=== PATIENT | male | born 1945 | race Caucasian/White ===

== ENCOUNTER 2018-12-20 09:03 | Emergency (ER) | payer MEDICARE ==
[~2018-12-20] VITALS: Ht 175.3 cm; Wt 78.0 kg
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
--- OUTSIDE RECORDS SUMMARY | ~2018-12-20 | XMS | Encounter Summary ---
Demographics + + + | Address | [address] | | | [place] [address] | + + + | Home Phone | | + + + | Preferred Language | Unknown | + + + | Marital Status | | + + + | Taoist Affiliation | PRO | + + + | Race | White | + + + | Ethnic Group | Not or | + + + Author + + + | Author | [facility] | + + + | Organization | [facility] | + + + | Address | Unknown | + + + | Phone | Unavailable | + + + Support + + +---------+ + | Name | Relationship | Address | Phone | + + +---------+ + | Sury Box | ECON | Unknown | | + + +---------+ + Care Team Providers + +------+ + | Care Telephone Coin Box Collector Name | Role | Phone | + +------+ + | Azar See DO | PCP | | + +------+ + Encounter Details +--------+ + + + + | Date | Type | Department | Care Team | Description | +--------+ + + + + | 10/11/ | Hospital | Registration [facility] | | | | 2018 | Encounter | [id number] | | | | | | [place] | | | | | | [place] [address] | | | +--------+ + + + + Social History + +-------+ +--------+------+ | Tobacco Use | Types | Packs/Day | Years | Date | | | | | Used | | + +-------+ +--------+------+ | Never Assessed | | | | | + +-------+ +--------+------+ + + + | Sex Assigned at [...] as of this encounter Plan of Treatment +--------+---------+ + + + | Date | Type | Specialty | Care Team | Description | +--------+---------+ + + + | 12/27/ | Office | Ophthalmology | Chris Mattson MD | | | 2019 | Visit | | [address] | | | | | | [place], [place] | | | | | | [address] | | | | | | [phone] | | | | | | | | +--------+---------+ + + + documented as of this encounter Visit Diagnoses Not on filedocumented in this encounter"
--- OUTSIDE RECORDS SUMMARY | ~2018-12-20 | XMS | Clinical Summary ---
Demographics + + + | Address | [address] | | | [place] [address] | + + + | Home Phone | | + + + | Preferred Language | Unknown | + + + | Marital Status | | + + + | Adventist Affiliation | PRO | + + + | Race | White | + + + | Ethnic Group | Not or | + + + Author + + + | Author | [facility] | + + + | Organization | NON REVENUE LOCATIONS | + + + | Address | Unknown | + + + | Phone | Unavailable | + + + Support + + +---------+ + | Name | Relationship | Address | Phone | + + +---------+ + | Sury Box | ECON | Unknown | | + + +---------+ + Care Team Providers + +------+ + | Care Gallery Or Museum Guide Name | Role | Phone | + +------+ + | Azar See DO | PCP | | + +------+ + Source Comments ANAYELI is fully live on both [facility] Ambulatory and [facility] InPatient.[facility] Allergies No Known Allergies Medications + + + +---------+------+------+-------+ | Medication | Sig | Dispensed | Refills | Star | End | Statu | | | | | | t | Date | s | | | | | | Date | | | + + + +---------+------+------+-------+ | atorvastatin 20 mg | Take 20 mg by mouth | | 0 | 09/0 | | Activ | | oral tablet | once daily. | | | 7/20 | | e | | | | | | 18 | | | + + + +---------+------+------+-------+ | losartan 50 mg | Take 50 mg by mouth | | 0 | 02/1 | | Activ | | oral tablet | once daily. | | | 03/31 | | e | | | | | | 19 | | | + + + +---------+------+------+-------+ | sildenafil 20 mg | Take 20 mg by mouth | | 0 | 08/3 | | Activ | | oral tablet | three times daily. | | | 0/20 | | e | | | | | | 18 | | | + + + +---------+------+------+-------+ | MEDICATION HELP | as needed. CBD oil | | 0 | | | Activ | | | | | | | | e | + + + +---------+------+------+-------+ | levothyroxine 125 | Take 125 mcg by | | 0 | 03/2 | | Activ | | mcg oral tablet | mouth before | | | 08/29 | | e | | | breakfast. | | | 19 | | | + + + +---------+------+------+-------+ | aspirin EC 81 mg | Take 81 mg by mouth | | 0 | | | Activ | | oral tablet,delayed | once daily. | | | | | e | | release (DR/EC) | | | | | | | + + + +---------+------+------+-------+ | Coenzyme Q10 (CO | Take 200 mg by mouth | | 0 | | | Activ | | Q-10) 200 mg oral | once daily. | | | | | e | | capsule | | | | | | | + + + +---------+------+------+-------+ | fluconazole 150 mg | Take 150 mg by mouth | | 0 | 02/0 | | Activ | | oral tablet | as needed. | | | 7/20 | | e | | | | | | 19 | | | + + + +---------+------+------+-------+ | vitamin B complex | Take 2,500 mg by | | 0 | | | Activ | | (B COMPLEX 1 ORAL) | mouth once daily. | | | | | e | + + + +---------+------+------+-------+ | Fish Oil-[place]-3 | Take 2,000 mg by | | 0 | | | Activ | | Fatty Acids (FISH | mouth once daily. | | | | | e | | OIL) 340-1,000 mg | | | | | | | | oral capsule | | | | | | | + + + +---------+------+------+-------+ | MEDICATION HELP | TURMERIC CURCUMIN PO | | 0 | | | Activ | | | | | | | | e | + + + +---------+------+------+-------+ | | Take 1 capsule by | | 0 | | | Activ | | beta-carotene(A)-vit | mouth once daily. | | | | | e | | s C,E/mins (OCUVITE | | | | | | | | ORAL) | | | | | | | + + + +---------+------+------+-------+ Active Problems + + + | Problem | Noted Date | + + + | Retinal tears, multiple, without detachment, bilateral | 07/08/2018 | + + + + + | Last Assessment & Plan: POM #2 s/p laser retinopexy, both | | eyes for retinal tear, both eye- Retinal breaks well surrounded | | by retinopexy (laser) scars.- No evidence of new retinal breaks | | or detachments on 360 degree scleral depressed examination. - RD | | precautions discussed and patient instructed to RTC sooner/seek | | urgent care if patient experiences discussed signs/symptoms. | + + + + + | Posterior vitreous detachment, both eyes | 07/08/2018 | + + + + + | Last Assessment & Plan: Monitor | + + + + + | Pseudophakia, both eyes | 07/08/2018 | + + + + + | Last Assessment & Plan: Trace inferior PCO left eye, not | | bothering patient at this time | + + + + + | Epiretinal membrane (ERM) of both eyes | 07/08/2018 | + + + + + | Last Assessment & Plan: Monitor | + + Family History + + +------+ + | Medical History | Relation | Name | Comments | + + +------+ + | Cancer | Brother | | | + + +------+ + | Glasses | Brother | | | + + +------+ + | Prostate Cancer | Brother | | | + + +------+ + | Glasses | Daughter | | | + + +------+ + | Cancer | Father | | | + + +------+ + | Glasses | Father | | | + + +------+ + | Prostate Cancer | Father | | | + + +------+ + | Heart Disease | Maternal | | | | | Grandfath | | | | | er | | | + + +------+ + | Heart Disease | Maternal | | | | | Grandmoth | | | | | er | | | + + +------+ + | Cancer | Mother | | | + + +------+ + | Leukemia | Mother | | | + + +------+ + | Blindness | Neg Hx | | | + + +------+ + | Cataracts | Neg Hx | | | + + +------+ + | Diabetes | Neg Hx | | | + + +------+ + | Glaucoma | Neg Hx | | | + + +------+ + | Macular degeneration | Neg Hx | | | + + +------+ + | Retinal detachment | Neg Hx | | | + + +------+ + + +------+--------+ + | Relation | Name | Status | Comments | + +------+--------+ + | Brother | | | | + +------+--------+ + | Daughter | | | | + +------+--------+ + | Father | | | | + +------+--------+ + | Maternal Grandfather | | | | + +------+--------+ + | Maternal Grandmother | | | | + +------+--------+ + | Mother | | | | + +------+--------+ + Social History + +-------+ +--------+------+ | Tobacco Use | Types | Packs/Day | Years | Date | | | | | Used | | + +-------+ +--------+------+ | Former Smoker | | | | | + +-------+ +--------+------+ + +---+---+---+ | Smokeless Tobacco: | | | | | Never Used | | | | + +---+---+---+ + + + | Sex Assigned at [...] recent travel history available. | + + Last Filed Vital Signs Not on file Plan of Treatment +--------+---------+ + + + | Date | Type | Specialty | Care Team | Description | +--------+---------+ + + + | 12/27/ | Office | Ophthalmology | Chris Mattson MD | | | 2019 | Visit | | [address] | | | | | | [place], [place] | | | | | | [address] | | | | | | [phone] | | | | | | | | +--------+---------+ + + + + + + + + | Health Maintenance | Due Date | Last Done | Comments | + + + + + | Influenza (Flu) | | 01/16/2017 | | | vaccination (#1) | 9 | | | + + + + + | Pneumococcal | Completed | 04/23/2014, 04/08/2009 | | | vaccination | | | | + + + + + Procedures + +--------+ + + + | Procedure Name | Priori | Date/Time | Associated Diagnosis | Comments | | | ty | | | | + +--------+ + + + | LASER RETINOPEXY FOR | Routin | 10/22/2018 | Retinal detachment | Results for this | | RD -OS - LEFT EYE | e | 9:38 AM | of both eyes with | procedure are in the | | | | PDT | multiple retinal | results section. | | | | | tears | | + +--------+ + + + | LASER RETINOPEXY FOR | Routin | 10/22/2018 | Retinal detachment | Results for this | | RD -OD - RIGHT EYE | e | 9:37 AM | of both eyes with | procedure are in the | | | | PDT | multiple retinal | results section. | | | | | tears | | + +--------+ + + + from Last 3 Months Results LASER RETINOPEXY FOR RD -OS - LEFT EYE (10/22/2018 9:38 AM PDT) + + -+ | Narrative | Performed At | + + -+ | | | | Pre-ProcedureProcedures, alternatives and risks discussed with | | | patient. Questions answered., confirmed correct patient, procedure, | | | site and consent. AnesthesiaAnesthesia: topical Anesthetic | | | Medication: Proparacaine 0.5% ProcedureLaser source: 532 nm | | | green laser Delivery Modality: Superquad Spot size: 200 | | | micronsDuration: 200 millisecondsPower: 200 milliwatts Total spots: | | | 112 Estimated blood loss: none Post OpPost op: patient tolerated | | | procedure well, eye rinsed. Patient reported pain is 0 on a 0-10 | | | scale. | | |Procedure | | |Laser source: 532 nm green laser | | |Delivery Modality: Superquad | | | | | |Spot size: 200 microns | | |Duration: 200 milliseconds | | |Power: 200 milliwatts | | | | | | | | |Total spots: 112 | | |Estimated blood loss: none | | | | | | | | |Post Op | | |Post op: patient tolerated procedure well, eye rinsed. Patient reported | | |pain is 0 on a 0-10 scale. | | + + -+ LASER RETINOPEXY FOR RD -OD - RIGHT EYE (10/22/2018 9:37 AM PDT) + + + | Narrative | Performed At | + + + | Pre-Procedure | | | Procedures, alternatives and risks discussed with patient. Questions | | | answered., confirmed correct patient, procedure, site and consent. | | | | | | | | | Anesthesia | | | Anesthesia: topical | | | Anesthetic Medication: Proparacaine 0.5% | | | | | | | | | Procedure | | | Laser source: 532 nm green laser | | | Delivery Modality: Superquad | | | | | | Spot size: 200 microns | | | Duration: 200 milliseconds | | | Power: 200 milliwatts | | | | | | | | | Total spots: 120 | | | Estimated blood loss: none | | | | | | | | | Post Op | | | Post op: patient tolerated procedure well, eye rinsed. | | + + + from Last 3 Months Insurance + +--------+ +--------+ + +--------+ | Payer | Benefi | Subscriber | Effect | Phone | Address | Type | | | t Plan | ID | julita | | | | | | / | | Dates | | | | | | Group | | | | | | + +--------+ +--------+ + +--------+ | MEDICARE | MEDICA | xxxxxxxxxxx | | [phone] | [address] | [address] | | | RE A & | | [phone] | [address] | | | B | | esent | | [place], [place] | | | | | | | | [address] | | + +--------+ +--------+ + +--------+ | [employer] | AARP | xxxxxxxxxxx | 03/12/19 | [phone] | [address] | Indemn | | RETIRED PEOPLE | | | 18-Pre | 9 | [id number] | ity | | | | | sent | | [place] | | | | | | | | [address] | | + +--------+ +--------+ + +--------+ + +--------+ +--------+ + + | Guarantor Name | Accoun | Relation to | Date | Phone | Billing Address | | | t Type | Patient | of | | | | | | | | | | + +--------+ +--------+ + + | Lenin Box Jr. | Person | Self [birth year] | [address] | | | al/Fam | | 1945 | [phone] | [place] [address] | | | melly | | | 5 (Home) | | + +--------+ +--------+ + +"
--- OUTSIDE RECORDS SUMMARY | ~2018-12-20 | XMS | Encounter Summary ---
Demographics + + + | Address | [address] | | | [place] [address] | + + + | Home Phone | | + + + | Preferred Language | Unknown | + + + | Marital Status | | + + + | Zoroastrianism Affiliation | PRO | + + + | Race | White | + + + | Ethnic Group | Not or | + + + Author + + + | Author | [facility] | + + + | Organization | [facility] | + + + | Address | Unknown | + + + | Phone | Unavailable | + + + Support + + +---------+ + | Name | Relationship | Address | Phone | + + +---------+ + | Sury Box | ECON | Unknown | | + + +---------+ + Care Team Providers + +------+ + | Care International Project Manager Name | Role | Phone | + [...] | | | | | [place] | | | | | | [place] [address] | | | +--------+ + + + [...] | | 2019 | Visit | | [address] | | | [address] | | | | | | [place], [place] | | | | | | [address] | | | | | | [phone] | | | | | | | | +--------+---------+ + + + documented as of this encounter Visit Diagnoses Not on filedocumented in this encounter"
--- OUTSIDE RECORDS SUMMARY | ~2018-12-20 | XMS | Encounter Summary ---
Demographics + + + | Address | [address] | | | [place] [address] | + + + | Home Phone | | + + + | Preferred Language | Unknown | + + + | Marital Status | | + + + | Hinduism Affiliation | PRO | + + + | Race | White | + + + | Ethnic Group | Not or | + + + Author + + + | Organization | Unknown | + + + | Address | Unknown | + + + | Phone | Unavailable | + + + Support + + +---------+ + | Name | Relationship | Address | Phone | + + +---------+ + | Sury Box | ECON | Unknown | | + + +---------+ + Care Team Providers + +------+ + | Care Cdl Company Driver Name | Role | Phone | + +------+ + | Azar See DO | PCP | | + +------+ + Encounter Details +--------+--------+ + + + | Date | Type | Department | Care Team | Description | +--------+--------+ + + + | 08/30/ | Travel | | | | | 2019 | | | | | +--------+--------+ + + + Social History + +-------+ [...] | | 2019 | Visit | | [address] | | | | | [address] | | | | | | [place] | | | | | | [address] | | | | | | [phone] | | | | | | | | +--------+---------+ + + + documented as of this encounter Visit Diagnoses Not on filedocumented in this encounter"
--- OUTSIDE RECORDS SUMMARY | ~2018-12-20 | XMS | Encounter Summary ---
Demographics + + + | Address | [address] | | | [place] [address] | + + + | Home Phone | | + + + | Preferred Language | Unknown | + + + | Marital Status | | + + + | Sabianist Affiliation | Unknown | + + + | Race | Unknown | + + + | Ethnic Group | Unknown | + + + Author + + + | Author | [facility] | | | and [place] | + + + | Organization | [facility] | | | and [place] | + + + | Address | Unknown | + + + | Phone | Unavailable | + + + Support + + + + + | Name | Relationship | Address | Phone | + + + + + | CARLOS ALBERTOTIANLANENASIR ALLEN | ECON | Unknown | | + + + + + | Astrid Box | ECON | [address] | | | | | [place] | | | | | [address] | | + + + + + Care Team Providers + +------+ + | Care Rheumatology Nurse Name | Role | Phone | + +------+ + | Azar See DO | PCP | Unavailable | + +------+ + Reason for Visit + + + | Reason | Comments | + + + | Back Injury | | + + + Encounter Details +--------+ + + + + | Date | Type | Department | Care Team | Description | +--------+ + + + + | 11/04/ | Telephone | [facility] | Azar See | Back Injury | | 2019 | | [facility] | E, DO [address] | | | | | [facility] [address] | [place], [place] | | | | | [address] [place], | [address] | | | | | [place] [address] | [phone] | | | | | [phone] | | | +--------+ + + + [...] + +---+---+---+ + + | Comments: Stopped 2002 | + + + + +---------+ + [...]
--- OUTSIDE RECORDS SUMMARY | ~2018-12-20 | XMS | Encounter Summary ---
Demographics + + + | Address | [address] | | | [place] [address] | + + + | Home Phone | | + + + | Preferred Language | Unknown | + + + | Marital Status | | + + + | Restoration Affiliation | PRO | + + + | Race | White | + + + | Ethnic Group | Not or | + + + Author + + + | Author | [facility] | + + + | Organization | [facility] | + + + | Address | Unknown | + + + | Phone | Unavailable | + + + Support + + +---------+ + | Name | Relationship | Address | Phone | + + +---------+ + | Sury Box | ECON | Unknown | | + + +---------+ + Care Team Providers + +------+ + | Care Medical Office Assistant Instructor Name | Role | Phone | + +------+ + | Azar See DO | PCP | | + +------+ + Reason for Visit + + + | Reason | Comments | + + + | New Patient Visit | | + + + | Suspected Retinal | | | Tear Or Detachment | | + + + Benefits Check (Routine) + +--------+ + + + + | Status | Reason | Specialty | Diagnoses / | Referred By | Referred To | | | | | Procedures | Contact | Contact | + +--------+ + + + + | Authorized | | Ophthalmology | | Nate, | Srinivasan, | | | | | | Hernan York MD | MD Chris | | | | | | [address] | [address] | | | | | [address] | [address] | | | | [address] | | | | | | [address] | [place], [place] | | | | | | Phone: | [phone] | | | | | | [phone] | Phone: | | | | | | Fax: | [phone] | | | | | | [phone] | Fax: | | | | | | | [phone] | + +--------+ + + + + Encounter Details +--------+---------+ + + + | Date | Type | Department | Care Team | Description | +--------+---------+ + + + | 07/08/ | Office | [facility] | Chris Mattson MD | Retinal detachment | | 2019 | Visit | [facility] at | [address] | of both eyes with | | | | [place] [id number] | [address] | multiple retinal | | | | [address] | [place], [place] | tears; Retinal | | | | Mailcode: [facility]I | [id number] | tears, multiple, | | | | [place], [place] | [phone] | without detachment, | | | | [address] | | bilateral; Posterior | | | | [phone] | | vitreous | | | | | | detachment, both | | | | | | eyes; Pseudophakia, | | | | | | both eyes; | | | | | | Epiretinal membrane | | | | | | (ERM) of both eyes | +--------+---------+ + + + Social History + +-------+ [...] + + documented as of this encounter Progress Notes Chris Mattson MD - 07/08/2018 11:00 AM PDT [facility] Progress Note 07/08/2018 Assessment & Plan: 73 y.o. male Retinal tears, multiple, without detachment, bilateral Risks, benefits, alternatives and indications of observation vs. cryotherapy vs. laser retinopexy were discussed and patient elects to proceed with laser retinopexy of retinal tea r both eyes The patient tolerated the procedure well, without immediate complications. RD precautions discussed and patient instructed to RTC sooner/seek urgent care if he exp eriences discussed signs/symptoms. Patient to follow-up in 1 week (or sooner prn) for repeat DFE. Posterior vitreous detachment, both eyes Monitor Pseudophakia, both eyes Monitor Epiretinal membrane (ERM) of both eyes Mild ERM on exam - OCT macula next visit Call for decreased vision, increased distortion, increased pain, new floaters or flashing l ights Follow up: 1 week, dilate BOTH eyes Chief Complaint: New Patient Visit Suspected Retinal Tear Or Detachment HPI (Edited by physician):Referred by Dr. Sullivan for possible retinal tear left eye. Intermittent flashes of light and floaters in the left eye x 8 years. He also noticed blur red vision in the left eye x 6 months. Right eye is stable. Ylg-ymeiyeq-mtniwtdtf diabetes mellitus controlled with diet and exercise. Last A1C 6.3. Type 2 DM x 2007 A1C 6.3 (05/2018) -Nephropathy, -Neuropathy ROS Negative for: Constitutional, Gastrointestinal, Neurological, Skin, Genitourinary, Musculo skeletal, HENT, Endocrine, Cardiovascular, Eyes, Respiratory, Psychiatric, Allergic/Imm, Hem e/Lymph Last edited by Chris Mattson MD on 07/08/2018 11:33 AM. (History) Current Outpatient Prescriptions (Other) Medication Sig aspirin EC Take 81 mg by mouth once daily. atorvastatin Take 20 mg by mouth once daily. beta-carotene(A)-vits C,E/mins (OCUVITE ORAL) Take 1 capsule by mouth once daily. Coenzyme Q10 Take 200 mg by mouth once daily. Fish Oil-[place]-3 Fatty Acids Take 2,000 mg by mouth once daily. fluconazole Take 150 mg by mouth as needed. levothyroxine Take 125 mcg by mouth before breakfast. losartan Take 50 mg by mouth once daily. MEDICATION HELP as needed. CBD oil MEDICATION HELP TURMERIC CURCUMIN PO sildenafil Take 20 mg by mouth three times daily. vitamin B complex (B COMPLEX 1 ORAL) Take 2,500 mg by mouth once daily. Reviewed: Allergies | Meds | Problems | Med Hx | Surg Hx | Fam Hx | Examination: See Ophthalmology Module Attestations: The desktop support technician, under the supervision of the physician, is responsible for performing the f ollowing sections: RFV, ROS, PMH, PSH, SocHx, FH, Med list, Base Ophth Exam. The attending physician is responsible for the entire content of the note and has personall y performed the HPI and the physical examination Chris Mattson MD docum ented in this encounter Plan of Treatment +--------+---------+ + + + | Date | Type | Specialty | Care Team | Description | +--------+---------+ + + + | 12/27/ | Office | Ophthalmology | Chris Mattson MD | | | 2018 | Visit | | [address] | [address] | | | | | | [place], [place] | | | | | | [address] | | | | | | [phone] | | | | | | | | +--------+---------+ + + + documented as of this encounter Procedures + +--------+ + + + | [...] | | + +--------+ + + + documented in this encounter Results LASER RETINOPEXY FOR RD -OS - [...] eye rinsed. 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
--- OUTSIDE RECORDS SUMMARY | ~2018-12-20 | XMS | Encounter Summary ---
Demographics + + + | Address | [address] | | | [place] [address] | + + + | Home Phone | | + + + | Preferred Language | Unknown | + + + | Marital Status | | + + + | Orthodox Affiliation | PRO | + + + | Race | White | + + + | Ethnic Group | Not or | + + + Author + + + | Author | [facility] | + + + | Organization | [facility] | + + + | Address | Unknown | + + + | Phone | Unavailable | + + + Support + + +---------+ + | Name | Relationship | Address | Phone | + + +---------+ + | Sury Box | ECON | Unknown | | + + +---------+ + Care Team Providers + +------+ + | Care Correctional Captain Name | Role | Phone | + +------+ + | Azar See DO | PCP | | + +------+ + Reason for Visit + + + | Reason | Comments | + + + | Car Prev Record | Car PREV checklist | | Review | | + + + Encounter Details +--------+ + + + + | Date | Type | Department | Care Team | Description | +--------+ + + + + | 10/13/ | Abstract | Cardiology General | Unknown . | Car Prev Record | | 2018 | | at [facility] [address] | | Review (Car PREV | | | | [place] Mailcode: | | checklist) | | | | [facility] | | | | | | [facility], | | | | | | Building | | | | | | [place], [place] | | | | | | [address] | | | | | | [phone] | | | +--------+ + + + [...] + documented as of this encounter Progress Janett Chakraborty - 10/13/2017 1:04 PM PDTFormatting of this note might be different from the [facility] New Patient Record Check List Procedure Where/Date Date requested Report received? Y/N, Where? Imaging received? CD/ IMPAX/Not Available Comments Referring Provider - notes External Referral Labs (Lipid profile, Lp(a) if done in last 6 months) PCP Carotid Ultrasound - report [facility] Coronary artery calcium score - images and report none Peripheral artery ultrasound - report [facility] Stress Echo - report [facility] Stress EKG - report Patient Preferred Lab Additional Comments: documented in this encounter Plan of Treatment +--------+---------+ + + + | Date | Type | Specialty | Care Team | Description | +--------+---------+ + + + | 12/27/ | Office | Ophthalmology | Chris Mattson MD | | | 2019 | Visit | | [address] | | | [address] | | | | | | [place], [place] | | | | | | [address] | | | | | | [phone] | | | | | | | | +--------+---------+ + + + documented as of this encounter Visit Diagnoses Not on filedocumented in this encounter"
--- OUTSIDE RECORDS SUMMARY | ~2018-12-20 | XMS | Encounter Summary ---
Demographics + + + | Address | [address] | | | [place] [address] | + + + | Home Phone | | + + + | Preferred Language | Unknown | + + + | Marital Status | | + + + | Restorationism Affiliation | Unknown | + + + | Race | Unknown | + + + | Ethnic Group | Unknown | + + + Author + + + | Author | [facility] | | | and [place] | + + + | Organization | [facility] | | | and [place] | + + + | Address | Unknown | + + + | Phone | Unavailable | + + + Support + + + + + | Name | Relationship | Address | Phone | + + + + + | CARLOS ALBERTOTINALANENASIR ALLEN | ECON | Unknown | | + + + + + | Astrid Box | ECON | [address] | | | | | [place] | | | | | [address] | | + + + + + Care Team Providers + +------+ + | Care Rice Drier Name | Role | Phone | + +------+ + | Azar See DO | PCP | Unavailable | + +------+ + Reason for Visit + + + | Reason | Comments | + + + | Appointment | for fup back pain | + + + Encounter Details +--------+ + + + + | Date | Type | Department | Care Team | Description | +--------+ + + + + | 11/01/ | Telephone | [facility] | Azar See | Appointment (for fup | | 2019 | | [facility] | E, DO [address] | back pain) | | | | [facility] [address] | [place], [place] | | | | | [address] [facility], | [address] | | | | | [place] [address] | [phone] | | | | | [phone] | | | +--------+ + + + [...]
--- OUTSIDE RECORDS SUMMARY | ~2018-12-20 | XMS | Encounter Summary ---
Demographics + + + | Address | [address] | | | [place] [address] | + + + | Home Phone | | + + + | Preferred Language | Unknown | + + + | Marital Status | | + + + | Latter Day Affiliation | Unknown | + + + | Race | Unknown | + + + | Ethnic Group | Unknown | + + + Author + + + | Author | [facility] | | | and [place] | + + + | Organization | [facility] | | | [...] [address] | | | | | [place] | | | | | [address] | | + + + + + Care Team Providers + +------+ + | Care Telecommunicator Supervisor Name | Role | Phone | + +------+ + | Azar See DO | PCP | Unavailable | + +------+ + Reason for Visit + + + | Reason | Comments | + + + | Medication Refill | | + + + Encounter Details +--------+--------+ + + + | Date | Type | Department | Care Team | Description | +--------+--------+ + + + | 12/15/ | Refill | [facility] | Azar See | Medication Refill | | 2019 | | [facility] | E, DO [address] | | | | | MEDICAL CLIN[address] | [place], [place] | | | | | [address] [place], | [address] | | | | | [place] [address] | [phone] | | | | | [phone] | | | +--------+--------+ + + + [...]
--- OUTSIDE RECORDS SUMMARY | ~2018-12-20 | XMS | Encounter Summary ---
Demographics + + + | Address | [address] | | | [place] [address] | + + + | Home Phone | | + + + | Preferred Language | Unknown | + + + | Marital Status | | + + + | Roman Catholic Affiliation | Unknown | + + + | Race | Unknown | + + + | Ethnic Group | Unknown | + + + Author + + + | Author | [facility] | | | and [place] | + + + | Organization | [facility] | | | and [...] [place] | | | | | [address] | | + + + + + Care Team Providers + +------+ + | Care Greige Mender Name | Role | Phone | + [...] (for fup | | 2019 | | [facility] | E, DO [address] | back pain) | | | | MEDICAL CLIN[facility] [address] | [place], [place] | | | | | [address] [facility], | [address] | | | | | [place] [address] | [phone] | | | | | [phone] | | | +--------+ + + + [...]
--- OUTSIDE RECORDS SUMMARY | ~2018-12-20 | XMS | Encounter Summary ---
Demographics + + + | Address | [address] | | | [place] [address] | + + + | Home Phone | | + + + | Preferred Language | Unknown | + + + | Marital Status | | + + + | Congregation Affiliation | PRO | + + + | Race | White | + + + | Ethnic Group | Not or | + + + Author + + + | Author | [facility] | + + + | Organization | [facility] | + + + | Address | Unknown | + + + | Phone | Unavailable | + + + Support + + +---------+ + | Name | Relationship | Address | Phone | + + +---------+ + | Sury Box | ECON | Unknown | | + + +---------+ + Care Team Providers + +------+ + | Care Hair Machine Operator Name | Role | Phone | + +------+ + | Azar See DO | PCP | | + +------+ + Reason for Visit + + + | Reason | Comments | + + + | Follow-up visit | | + + + Benefits Check (Routine) + +--------+ + + + + | Status | Reason | Specialty | Diagnoses / | Referred By | Referred To | | | | | Procedures | Contact | Contact | + +--------+ + + + + | Authorized | | Ophthalmology | | Nate, | Srinivasan | | | | | | Hernan York MD | MD Chris | | | | | | [address] | [address] | | | | | [address] | [address] | | | | | | [address] | | | | | | [address] | [facility] [place] | | | | | | Phone: | [address] | | | | | | [phone] | Phone: | | | | | | Fax: | [phone] | | | | | | [phone] | Fax: | | | | | | | [phone] | + +--------+ + + + + Encounter Details +--------+---------+ + + + | Date | Type | Department | Care Team | Description | +--------+---------+ + + + | 08/30/ | Office | [facility] | Chris Mattson MD | Retinal tears, | | 2019 | Visit | [facility] at | [address] | multiple, without | | | | [address] | [address] | detachment, | | | | [address] | [place], [place] | bilateral; | | | | Mailcode: [facility] | [id number] | Pseudophakia, both | | | | [place], [place] | [phone] | eyes; Epiretinal | | | | [address] | | membrane (ERM) of | | | | [phone] | | both eyes | +--------+---------+ + + + [...] encounter Progress Notes Chris Mattson MD - 08/30/2018 1:00 PM PDT [facility] Progress Note 08/30/2018 Assessment & Plan: 73 y.o. male Retinal tears, multiple, without detachment, bilateral POM #2 s/p laser retinopexy, both eyes for retinal tear, both eye - Retinal breaks well surrounded by retinopexy (laser) scars. - No evidence of new retinal breaks or detachments on 360 degree scleral depressed examinat ion. - RD precautions discussed and patient instructed to RTC sooner/seek urgent care if patient experiences discussed signs/symptoms. Pseudophakia, both eyes Trace inferior PCO left eye, not bothering patient at this time Epiretinal membrane (ERM) of both eyes Monitor Call for decreased vision, increased distortion, increased pain, new floaters or flashing l ights Follow up: Return for 3-4 months . Chief Complaint: Follow-up visit HPI (Edited by physician):POM 2 s/p retinopexy both eyes 07/08/18. Patient reports no notic eable change in vision since last exam. No floaters, flashes, or pain at this time. Ocular Meds: ATs rarely ROS Negative for: Constitutional, Gastrointestinal, Neurological, Skin, Genitourinary, Musculo skeletal, HENT, Endocrine, Cardiovascular, Eyes, Respiratory, Psychiatric, Allergic/Imm, Hem e/Lymph Last edited by Chris Mattson MD on 08/30/2018 1:17 PM. (History) Current Outpatient Medications (Other) Medication Sig aspirin EC Take 81 mg by mouth once daily. atorvastatin Take 20 mg by mouth once daily. beta-carotene(A)-vits C,E/mins (OCUVITE [place]) Take 1 capsule by mouth once daily. Coenzyme Q10 Take 200 mg by mouth once daily. Fish Oil-[place]-3 Fatty Acids Take 2,000 mg by mouth [...] once daily. Reviewed: Allergies | Meds | Examination: See Ophthalmology Module Attestations: The procurement technician, under the supervision of the physician, is responsible for performing the f ollowing sections: RFV, ROS, PMH, PSH, SocHx, FH, Med list, Base Ophth Exam. The attending physician is responsible for the entire content of the note and has personall y performed the HPI and the physical examination Chris Mattson MD Cornelius ented in this encounter Plan of Treatment +--------+---------+ + + + | Date | Type | Specialty | Care Team | Description | +--------+---------+ + + + | 12/27/ | Office | Ophthalmology | Chris Mattson MD | | | 2018 | Visit | | [address] | | | | | | [place], [place] | | | | | | [address] | | | | | | [phone] | | | | | | | | +--------+---------+ + + + documented as of this encounter Visit Diagnoses + + | Diagnosis | + + | Retinal tears, multiple, without detachment, bilateral | + + | Pseudophakia, both eyes Lens replaced by other means | + + | Epiretinal membrane (ERM) of both eyes | + + documented in this encounter"
--- OUTSIDE RECORDS SUMMARY | ~2018-12-20 | XMS | Clinical Summary ---
Demographics + + + | Address | [address] | | | [place] [address] | + + + | Home Phone | | + + + | Preferred Language | Unknown | + + + | Marital Status | | + + + | Episcopalian Affiliation | Unknown | + + + | Race | Unknown | + + + | Ethnic Group | Unknown | + + + Author + + + | Author | [facility] (Historical as of | | | 10-26-18) | + + + | Organization | [facility] (Historical as of | | | 10-26-18) | + + + | Address | Unknown | + + + | Phone | Unavailable | + + + Support + + +---------+ + | Name | Relationship | Address | Phone | + + +---------+ + | Astrid Oh | ECON | Unknown | | + + +---------+ + Care Team Providers + +------+ + | Care Mixing And Dispensing Supervisor Name | Role | Phone | + +------+ + | Edison Powers MD | PP | | + +------+ + Allergies Not on File Current Medications Not on file Active Problems Not on file Social History + +-------+ +--------+------+ | Tobacco [...] on file | | + + + Plan of Treatment Not on file Results Not on filefrom Last 3 Months Insurance + +--------+ +------+-------+ + | Payer | Benefi | Subscriber | Type | Phone | Address | | | t Plan | ID | | | | | | / | | | | | | | Group | | | | | + +--------+ +------+-------+ + | MEDICARE | MEDICA | [id number] | | | [address] | | | RE | | | | [place] [address] | | | IP-OP | | | | | + +--------+ +------+-------+ + | [facility] | UNITED | [id number] | | | | | | | | | | | | | HEALTH | | | | | | | CARE - | | | | | | | AARP | | | | | + +--------+ +------+-------+ + + +--------+ +--------+ + + | Guarantor Name | Accoun | Relation to | Date | Phone | Billing Address | | | t Type | Patient | of | | | | | | | | | | + +--------+ +--------+ + + | [place]IN [place] | Person | Self [birth year] Home: | [address] | | | al/[place] | | 1945 | [phone] | [place] | | | [place]ly | | | [phone] | [phone] | + +--------+ +--------+ + +"
--- OUTSIDE RECORDS SUMMARY | ~2018-12-20 | XMS | Encounter Summary ---
Demographics + + + | Address | [address] | | | [place] [address] | + + + | Home Phone | | + + + | Preferred Language | Unknown | + + + | Marital Status | | + + + | Taoism Affiliation | PRO | + + + | Race | White | + + + | Ethnic Group | Not or | + + + Author + + + | Author | [facility] | + + + | Organization | [facility] | + + + | Address | Unknown | + + + | Phone | Unavailable | + + + Support + + +---------+ + | Name | Relationship | Address | Phone | + + +---------+ + | Sury Box | ECON | Unknown | | + + +---------+ + Care Team Providers + +------+ + | Care Chinese Teacher Name | Role | Phone | + [address] | | | | | | [address] | [place], [place] | | | | | | Phone: | [phone] | | | | | | [phone] | Phone: | | | | | | Fax: | [phone] | | | | | | [phone] | Fax: | | | | | | | [phone] | + +--------+ + + + + Encounter Details +--------+---------+ + + + | Date | Type | Department | Care Team | Description | +--------+---------+ + + + | 07/19/ | Office | [facility] | Chris Mattson MD | Epiretinal membrane | | 2019 | Visit | [facility] at | [address] | (ERM) of both eyes | | | | [facility] [address] | (Primary Dx); | | | | [address] | [place], [place] | Retinal tears, | | | | Mailcode: [facility] | [address] | multiple, without | | | | [place], [place] | [phone] | detachment, | | | | [address] | | bilateral | | | | [phone] | | | +--------+---------+ + + + Social History [...] documented as of this encounter Progress Notes Nasir Gaming MD - 07/19/2018 10:30 AM PDTFormatting of this note might be different from minh garner original. [facility] Progress Note 07/19/2018 Assessment & Plan: 73 y.o. male Epiretinal membrane (ERM) of both eyes May be slightly affecting vision in the left eye - Patient getting new glasses to see if any improvement - Monitor Retinal tears, multiple, without detachment, bilateral POW #1 s/p laser retinopexy, both eyes for retinal tear, both eye - Retinal breaks well surrounded by retinopexy (laser) scars. - No evidence of new retinal breaks or detachments on 360 degree scleral depressed examinat ion. - RD precautions discussed and patient instructed to RTC sooner/seek urgent care if patient experiences discussed signs/symptoms. Call for decreased vision, increased distortion, increased pain, new floaters or flashing l ights Follow up: Return in about 4 weeks (around 08/16/2018). Chief Complaint: Follow-up visit HPI (Edited by physician):Vision stable. Started having new flashes peripherally in the lef t eye right after the laser procedure. No new floaters, no curtain. No ocular medications ROS Negative for: Constitutional, Gastrointestinal, Neurological, Skin, Genitourinary, Musculo skeletal, HENT, Endocrine, Cardiovascular, Eyes, Respiratory, Psychiatric, Allergic/Imm, Hem e/Lymph Last edited by Chris Mattson MD on 07/19/2018 10:28 AM. (History) Current Outpatient Prescriptions (Other) Medication Sig aspirin EC Take 81 mg by mouth once daily. atorvastatin Take 20 mg by mouth once daily. beta-carotene(A)-vits C,E/mins (OCUVITE ORAL) Take 1 capsule by mouth once daily. Coenzyme Q10 Take 200 mg by mouth once daily. Fish Oil-Blodgett-3 Fatty Acids Take 2,000 mg by mouth [...] | Examination: See Ophthalmology Module Attestations: The ip/mosaic technician, under the supervision of the physician, [...] | | 2019 | Visit | | [address] | | | | | | [address] | | | | | | [place], [place] | | | | | | [address] | | | | | | [phone] | | | | | | | | +--------+---------+ + + + documented as of this encounter Procedures + +--------+ + + + | Procedure Name | Priori | Date/Time | Associated Diagnosis | Comments | | | ty | | | | + +--------+ + + + | OCT, RETINA | Routin | 07/19/2018 | Epiretinal | Results for this | | | e | 10:07 AM | membrane (ERM) of | procedure are in the | | | | PDT | both eyes | results section. | + +--------+ + + + documented in this encounter Results OCT, RETINA (07/19/2018 10:07 AM PDT) + + + | Narrative | Performed At | + + + | [facility] | [facility] | | DocumentationRight EyeQuality: good Central macular | [facility] | | thickness: 294 Segmentation: accurate Left EyeQuality: | | | good Central macular thickness: 336 Segmentation: accurate | | | Provider DocumentationRight EyeFluid and related findings: no | | | fluid Retinal findings: epiretinal membrane Left EyeFluid and | | | related findings: no fluid Retinal findings: epiretinal | | | membrane | | |Left Eye | | |Quality: good | | | | | |Central macular thickness: 336 | | |Segmentation: accurate | | | | | | | | |Provider Documentation | | |Right Eye | | |Fluid and related findings: no fluid | | |Retinal findings: epiretinal membrane | | | | | | | | |Left Eye | | |Fluid and related findings: no fluid | | |Retinal findings: epiretinal membrane | | + + + + + + + + | Performing | Address | City/State/Zipcode | Phone Number | | Organization | | | | + + + + + | [facility] | [address] | [place] [address] | | | [facility] | [place] | | | + + + + + documented in this encounter Visit Diagnoses + + | Diagnosis | + + | Epiretinal membrane (ERM) of both eyes - Primary | + + | Retinal tears, multiple, without detachment, bilateral | + + documented in this encounter"
--- OUTSIDE RECORDS SUMMARY | ~2018-12-20 | XMS | Encounter Summary ---
Demographics + + + | Address | [address] | | | [place] [address] | + + + | Home Phone | | + + + | Preferred Language | Unknown | + + + | Marital Status | | + + + | Mormonism Affiliation | PRO | + + + | Race | White | + + + | Ethnic Group | Not or | + + + Author + + + | Author | [facility] | + + + | Organization | [facility] | + + + | Address | Unknown | + + + | Phone | Unavailable | + + + Support + + +---------+ + | Name | Relationship | Address | Phone | + + +---------+ + | Sury Box | ECON | Unknown | | + + +---------+ + Care Team Providers + +------+ + | Care Rag Sorter And Cutter Name | Role | Phone | + [...] Record | | 2018 | | at [facility] [address] | | Review (Car PREV | | | | [place] Mailcode: | | checklist) | | | | [facility] | | | | | | [facility] He[facility], | | | | | | Building | | | | | | [place], [place] | | | | | | [address] | | | | | | [phone] | | | +--------+ + + + [...] [facility] Stress Echo - report [facility] Stress EKG - report Patient Preferred Lab Additional Comments: documented in this encounter Plan of Treatment +--------+---------+ + + + | Date | Type | Specialty | Care Team | Description | +--------+---------+ + + + | 12/27/ | Office | Ophthalmology | Chris Mattson MD | | | 2019 | Visit | | [address] | | | | [address] | | | | | | [place], [place] | | | | | | [address] | | | | | | [phone] | | | | | | | | +--------+---------+ + + + documented as of this encounter Visit Diagnoses Not on filedocumented in this encounter"
--- OUTSIDE RECORDS SUMMARY | ~2018-12-20 | XMS | Encounter Summary ---
Demographics + + + | Address | [address] | | | [place] [address] | + + + | Home Phone | | + + + | Preferred Language | Unknown | + + + | Marital Status | | + + + | Uatsdin Affiliation | Unknown | + + + | Race | Unknown | + + + | Ethnic Group | Unknown | + + + Author + + + | Author | [facility] | | | and [place] | + + + | Organization | [facility] | | | and [...] [place] | | | | | [address] | | + + + + + Care Team Providers + +------+ + | Care Radar Air Traffic Controller Name | Role | Phone | + [...] Description | +--------+--------+ + + + | 11/06/ | Refill | DOR[facility] CAIN | Azar See | Medication Refill | | 2019 | | [facility] | E, DO [address] | | | | | MED[address] | [place], [place] | | | | | [address] [place], | [address] | | | | | [place] [address] | [phone] | | | | | [phone] | | | +--------+--------+ + + + [...]
--- OUTSIDE RECORDS SUMMARY | ~2018-12-20 | XMS | Clinical Summary ---
Demographics + + + | Address | [address] | | | [place] [address] | + + + | Home Phone | | + + + | Preferred Language | Unknown | + + + | Marital Status | | + + + | Hindu Affiliation | Unknown | + + + | Race | Unknown | + + + | Ethnic Group | Unknown | + + + Author + + + | Author | [facility] (Historical as of | | | 10-26-18) | + + + | Organization | [facility] (Historical as of | | | 10-26-18) [...] Team Providers + +------+ + | Care Facility Service Associate Name | Role | Phone | + [...] +------+-------+ + | MEDICARE | MEDICA | [id number] | | | [address] | | | RE | | | | [place] [address] | | | IP-OP | | | | | + +--------+ +------+-------+ + | [facility] | UNITED | [id number] | | | | | | | [...] | melly | | | [phone] | [phone] | + +--------+ +--------+ + +"
--- OUTSIDE RECORDS SUMMARY | ~2018-12-20 | XMS | Encounter Summary ---
Demographics + + + | Address | [address] | | | [place] [address] | + + + | Home Phone | | + + + | Preferred Language | Unknown | + + + | Marital Status | | + + + | Jew Affiliation | PRO | + + + | Race | White | + + + | Ethnic Group | Not or | + + + Author + + + | Author | [facility] | + + + | Organization | [facility] | + + + | Address | Unknown | + + + | Phone | Unavailable | + + + Support + + +---------+ + | Name | Relationship | Address | Phone | + + +---------+ + | Sury Box | ECON | Unknown | | + + +---------+ + Care Team Providers + +------+ + | Care Linter Operator Name | Role | Phone | + +------+ + | MayiAzar | PCP | | + +------+ + Reason for Visit + + + | Reason | Comments | + + + | Flashes And Floaters | Flashes, left eye | + + + Encounter Details +--------+ + + + + | Date | Type | Department | Care Team | Description | +--------+ + + + + | 07/10/ | Telephone | [facility] | Chris Mattson MD | Flashes And Floaters | | 2019 | | [facility] at | [address] | (Flashes, left eye) | | | | [facility] [address] | | | | | [address] | [place], [place] | | | | | Mailcode: [facility] | [address] | | | | | [facility] [place] | [phone] | | | | | [address] | | | | | | [phone] | | | +--------+ + + + [...] | | 2019 | Visit | | [address] | | | | | | [address] | | | | | | [place] | | | | | | [address] | | | | | | [phone] | | | | | | | | +--------+---------+ + + + documented as of this encounter Visit Diagnoses Not on filedocumented in this encounter"
--- OUTSIDE RECORDS SUMMARY | ~2018-12-20 | XMS | Encounter Summary ---
Demographics + + + | Address | [address] | | | [place] [address] | + + + | Home Phone | | + + + | Preferred Language | Unknown | + + + | Marital Status | | + + + | Jew Affiliation | Unknown | + + + | Race | Unknown | + + + | Ethnic Group | Unknown | + + + Author + + + | Author | [facility] | | | and [place] | + + + | Organization | [facility] | | | [...] [place] | | | | | [address] | | + + + + + Care Team Providers + +------+ + | Care Roving Frame Tender Name | Role | Phone | + [...] Back Injury | | 2019 | | [facility] | E, DO [address] | | | | | MEDICAL [address] | [place], [place] | | | | | [address] [place], | [address] | | | | | [place] [address] | [phone] | | | | | [phone] | | | +--------+ + + + [...]
--- OUTSIDE RECORDS SUMMARY | ~2018-12-20 | XMS | Encounter Summary ---
Demographics + + + | Address | [address] | | | [place] [address] | + + + | Home Phone | | + + + | Preferred Language | Unknown | + + + | Marital Status | | + + + | Mu-Ism Affiliation | Unknown | + + + | Race | Unknown | + + + | Ethnic Group | Unknown | + + + Author + + + | Author | [facility] | | | and [place] | + + + | Organization | [facility] | | | [...] [place] | | | | | [address] | | + + + + + Care Team Providers + +------+ + | Care Policy Change Clerks Supervisor Name | Role | Phone | [...] Description | +--------+--------+ + + + | 12/06/ | Refill | DORITA CAIN | Azar See | Medication Refill | | 2019 | | [facility] | E, DO [address] | | | | | MEDICAL [address] | [place], [place] | | | | | [address] [place], | [address] | | | | | [place] [address] | [phone] | | | | | [phone] | | | +--------+--------+ + + + [...]
--- OUTSIDE RECORDS SUMMARY | ~2018-12-20 | XMS | Encounter Summary ---
Demographics + + + | Address | [address] | | | [place] [address] | + + + | Home Phone | | + + + | Preferred Language | Unknown | + + + | Marital Status | | + + + | Yarsanism Affiliation | Unknown | + + + | Race | Unknown | + + + | Ethnic Group | Unknown | + + + Author + + + | Author | [facility] | | | and [place] | + + + | Organization | [facility] | | | [...] [place] | | | | | [address] | | + + + + + Care Team Providers + +------+ + | Care Fire Patrol Name | Role | Phone | + +------+ + | Azar See DO | JEWEL | Unavailable | + +------+ + Encounter Details +--------+ + + + + | Date | Type | Department | Care Team | Description | +--------+ + + + + | 10/09/ | Orders Only | [facility] | Provider, | | | 2019 | | [facility] GENER[facility] OP | [address] | | | | | [address] | [address] | | | | | [address] [place], [place] | [facility] [place] [address] | | | | | [address] | | | | | | [phone] | | | +--------+ + + + [...]
--- OUTSIDE RECORDS SUMMARY | ~2018-12-20 | XMS | Encounter Summary ---
Demographics + + + | Address | [address] | | | [place] [address] | + + + | Home Phone | | + + + | Preferred Language | Unknown | + + + | Marital Status | | + + + | Buddhist Affiliation | PRO | + + + | Race | White | + + + | Ethnic Group | Not or | + + + Author + + + | Author | [facility] | + + + | Organization | [facility] | + + + | Address | Unknown | + + + | Phone | Unavailable | + + + Support + + +---------+ + | Name | Relationship | Address | Phone | + + +---------+ + | Sury Box | ECON | Unknown | | + + +---------+ + Care Team Providers + +------+ + | Care President [employer] Name | Role | Phone | + [...] And Floaters | | 2019 | | [facility] at | [address] | (Flashes, left eye) | | | | [facility] [address] | | | | | [address] | [place], [place] | | | | | Mailcode: [facility] | [address] | | | | | [facility] [place] | [phone] | | | | | [address] | | | | | | [phone] | | | +--------+ + + + [...] [address] | | | | | | [place] | | | | | | [id number] | | | | | | [phone] | | | | | | | | +--------+---------+ + + + documented as of this encounter Visit Diagnoses Not on filedocumented in this encounter"
--- OUTSIDE RECORDS SUMMARY | ~2018-12-20 | XMS | Encounter Summary ---
Demographics + + + | Address | [address] | | | [place] [address] | + + + | Home Phone | | + + + | Preferred Language | Unknown | + + + | Marital Status | | + + + | Mormonism Affiliation | Unknown | + + + | Race | Unknown | + + + | Ethnic Group | Unknown | + + + Author + + + | Author | [facility] | | | and [place] | + + + | Organization | [facility] | | | and [...] [place] | | | | | [address] | | + + + + + Care Team Providers + +------+ + | Care Car Park Attendant Name | Role | Phone | + [...] Medication Refill | | 2019 | | [facility] | E, DO [address] | | | | | MEDICAL CL[address] | [place], [place] | | | | | [address] [place], | [address] | | | | | [place] [address] | [phone] | | | | | [phone] | | | +--------+--------+ + + + [...]
--- OUTSIDE RECORDS SUMMARY | ~2018-12-20 | XMS | Encounter Summary ---
Demographics + + + | Address | [address] | | | [place] [address] | + + + | Home Phone | | + + + | Preferred Language | Unknown | + + + | Marital Status | | + + + | Faith Affiliation | Unknown | + + + | Race | Unknown | + + + | Ethnic Group | Unknown | + + + Author + + + | Author | [facility] | | | and [place] | + + + | Organization | [facility] | | | and [...] [place] | | | | | [address] | | + + + + + Care Team Providers + +------+ + | Care Fiberglass Boat Maker Name | Role | Phone | + [...] Description | +--------+--------+ + + + | 12/03/ | Refill | DORITA CAIN | Karla Louie, CC | Medication Refill | | 2019 | | [facility] | DIVISION LEADER | | | | | MEDICAL [facility] | | | | | | [address] [facility], | | | | | | [place] [address] | | | | | | [phone] | | | +--------+--------+ + + + [...] filedocumented as of this encounter Visit Diagnoses + + | Diagnosis | + + | Impaired fasting glucose - Primary | + + documented in this encounter"
--- OUTSIDE RECORDS SUMMARY | ~2018-12-20 | XMS | Clinical Summary ---
Demographics + + + | Address | [address] | | | [place] [address] | + + + | Home Phone | | + + + | Preferred Language | Unknown | + + + | Marital Status | | + + + | Zoroastrianism Affiliation | Unknown | + + + | Race | Unknown | + + + | Ethnic Group | Unknown | + + + Author + + + | Author | [facility] | | | and [place] | + + + | Organization | [facility] | | | and [...] [place] | | | | | [address] | | + + + + + Care Team Providers + +------+ + | Care Quote Clerk Name | Role | Phone | + +------+ + | Azar See DO | JEWEL | Unavailable | + +------+ + Allergies + + + + + + | Active Allergy | Reactions | Severity | Noted | Comments | | | | | Date | | + + + + + + | Adhesive & Tape | | | 09/19/19 | | | | | | 18 | | + + + + + + | Zolpidem | Other (See Comments) | Low | 06/05/19 | Hung over feeling | | | | | 19 | the next day | + + + + + + | Rosuvastatin | Other (See Comments) | | 09/19/19 | Weakness, fatigue, | | | | | 18 | forgetful | + + + + + + | Iodine | | | 09/19/19 | | | | | | 18 | | + + + + + + | Atorvastatin | Other (See Comments) | | 09/19/19 | Mental sluggish | | | | | 18 | | + + + + + + | Metformin | Hives | | 09/19/19 | | | | | | 18 | | + + + + + + | Pseudoephedrine | Other (See Comments) | | 06/05/19 | BLOOD PRESSURE | | | | | 19 | increase | + + + + + + | Uncoded | | | 09/19/19 | IVP dye | | Nonscreenable | | | 18 | | | Allergen | | | | | + + + + + + Medications + + + +---------+------+------+-------+ | Medication | Sig | Dispensed | Refills | Star | End | Statu | | | | | | t | Date | s | | | | | | Date | | | + + + +---------+------+------+-------+ | | Take 4,500 mg by | | 0 | | | Activ | | Methylsulfonylmethan | mouth Daily. | | | | | e | | e (MSM PO) | | | | | | | + + + +---------+------+------+-------+ | Coenzyme Q10 | Take by mouth 2 | | 0 | | | Activ | | (COQ10) 200 MG CAPS | times daily. | | | | | e | + + + +---------+------+------+-------+ | Cyanocobalamin | Take 2,500 mg by | | 0 | | | Activ | | (VITAMIN B12 PO) | mouth. | | | | | e | + + + +---------+------+------+-------+ | aspirin 81 mg EC | Take 81 mg by mouth | | 0 | | | Activ | | tablet | Daily. | | | | | e | + + + +---------+------+------+-------+ | ketoconazole | Apply topically as | | 0 | | | Activ | | (NIZORAL) 2% cream | needed. | | | | | e | + + + +---------+------+------+-------+ | omeprazole | Take 40 mg by mouth | | 0 | | | Activ | | (PRILOSEC) 20 mg | every morning | | | | | e | | capsule | (before breakfast). | | | | | | + + + +---------+------+------+-------+ | atorvaSTATin | 1 po Sunday, | 45 | 3 | | | Activ | | (LIPITOR) 20 mg | Sunday, Sunday | tablet | | 09/28 | | e | | tablet | night | | | 18 | | | + + + +---------+------+------+-------+ | TURMERIC CURCUMIN | Take by mouth 2 | | 0 | | | Activ | | PO | times daily. | | | | | e | + + + +---------+------+------+-------+ | Multiple | Take by mouth | | 0 | | | Activ | | Vitamins-Minerals | Daily. | | | | | e | | (MULTIVITAMIN ADULT | | | | | | | | PO) | | | | | | | + + + +---------+------+------+-------+ | fish oil 1,000 mg | Take 2,000 mg by | | 0 | | | Activ | | capsule | mouth Daily. | | | | | e | + + + +---------+------+------+-------+ | | Inhale 1 puff into | 1 each | 4 | 03/1 | | Activ | | fluticasone-umeclidi | the lungs Daily. | | | 5/20 | | e | | nium-vilanterol | | | | 19 | | | | (TRELEGY ELLIPTA) | | | | | | | | 100-62.5-25 mcg/puff | | | | | | | | inhaler | | | | | | | + + + +---------+------+------+-------+ | fluconazole | | | 0 | 02/0 | | Activ | | (DIFLUCAN) 150 mg | | | | 7/20 | | e | | tablet | | | | 19 | | | + + + +---------+------+------+-------+ | Ibuprofen (MOTRIN | Take by mouth. 2-3 | | 0 | | | Activ | | PO) | tablets QHS | | | | | e | + + + +---------+------+------+-------+ | Multiple | Take 1 capsule by | | 0 | | | Activ | | Vitamins-Minerals | mouth once daily. | | | | | e | | (OCUVITE PO) | | | | | | | + + + +---------+------+------+-------+ | UNABLE TO FIND | as needed. CBD oil | | 0 | | | Activ | | | | | | | | e | + + + +---------+------+------+-------+ | UNABLE TO FIND | LISETTE CURCUMIN PO | | 0 | | | Activ | | | | | | | | e | + + + +---------+------+------+-------+ | B Complex Vitamins | Take 2,500 mg by | | 0 | | | Activ | | (B COMPLEX 1 PO) | mouth once daily. | | | | | e | + + + +---------+------+------+-------+ | VASCEPA 1 g | | | 0 | 06/0 | | Activ | | capsule | | | | 20 | | e | | | | | | 19 | | | + + + +---------+------+------+-------+ | Coenzyme Q10 | Take 200 mg by mouth | | 0 | | | Activ | | (COQ10) 200 MG CAPS | once daily. | | | | | e | + + + +---------+------+------+-------+ | fluconazole | Take 150 mg by mouth | | 0 | 02/0 | | Activ | | (DIFLUCAN) 150 mg | as needed. | | | 09/28 | | e | | tablet | | | | 19 | | | + + + +---------+------+------+-------+ | levothyroxine | Take 125 mcg by | | 0 | 03/2 | | Activ | | (SYNTHROID) 125 mcg | mouth before | | | 620 | | e | | tablet | breakfast. | | | 19 | | | + + + +---------+------+------+-------+ | losartan (COZAAR) | Take 50 mg by mouth | | 0 | 02/1 | | Activ | | 50 mg tablet | once daily. | | | 1/20 | | e | | | | | | 19 | | | + + + +---------+------+------+-------+ | sildenafil | Take 20 mg by mouth | | 0 | 08/3 | | Activ | | (REVATIO) 20 mg | three times daily. | | | 0/20 | | e | | tablet | | | | 18 | | | + + + +---------+------+------+-------+ | fish oil 1,000 mg | Take 2,000 mg by | | 0 | | | Activ | | capsule | mouth once daily. | | | | | e | + + + +---------+------+------+-------+ | atorvaSTATin | Take 20 mg by mouth | 90 | 3 | 08/2 | | Activ | | (LIPITOR) 20 mg | once daily. | tablet | | 8/20 | | e | | tablet | | | | 19 | | | + + + +---------+------+------+-------+ | levothyroxine | TAKE ONE TABLET BY | 90 | 3 | 08/2 | | Activ | | (SYNTHROID) 125 mcg | MOUTH EVERY MORNING | tablet | | 8/20 | | e | | tablet | BEFORE BREAKFAST | | | 19 | | | + + + +---------+------+------+-------+ | losartan (COZAAR) | Take 1 tablet by | 90 | 3 | 08/2 | | Activ | | 50 mg tablet | mouth Daily. | tablet | | 8/20 | | e | | | | | | 19 | | | + + + +---------+------+------+-------+ | sildenafil | TAKE ONE TABLET BY | 90 | 2 | 09/2 | | Activ | | (REVATIO) 20 mg | MOUTH THREE TIMES | tablet | | 3/20 | | e | | tablet | DAILY | | | 19 | | | + + + +---------+------+------+-------+ | Glucose Blood | One Touch test | 200 | 3 | 09 | | Activ | | (BLOOD GLUCOSE TEST | strips, test once a | each | | 4/20 | | e | | STRIPS) | day or as instructed | | | 19 | | | | STRPIndications: | by PCP | | | | | | | Impaired fasting | | | | | | | | glucose | | | | | | | + + + +---------+------+------+-------+ | indomethacin | Take 1 capsule by | 90 | 0 | 10/0 | | Activ | | (INDOCIN) 50 MG | mouth 3 times daily | capsule | | / | | e | | capsule | (with meals). | | | 19 | | | + + + +---------+------+------+-------+ | sildenafil | Take 1 tablet by | 90 | 3 | 08/3 | / | Disco | | (REVATIO) 20 mg | mouth 3 times daily. | tablet | | 0/20 | 3/20 | ntinu | | tablet | | | | 18 | 19 | ed | + + + +---------+------+------+-------+ | colchicine 0.6 mg | Take two tablets by | 6 | 0 | 03/1 | 09/2 | Disco | | tablet | mouth on onset of | tablet | | 5/20 | 7/20 | ntinu | | | gout. 1 tablet by | | | 19 | 19 | ed | | | mouth 1 hour later. | | | | | | + + + +---------+------+------+-------+ | colchicine 0.6 mg | Take two tablets by | 6 | 0 | 09/2 | 09/3 | Disco | | tablet | mouth on onset of | tablet | | 7/20 | 0/20 | ntinu | | | gout. TAKE 1 tablet | | | 19 | 19 | ed | | | by mouth 1 hour | | | | | | | | later. | | | | | | + + + +---------+------+------+-------+ | indomethacin | Take 1 capsule by | 30 | 0 | 09/3 | 10/0 | Disco | | (INDOCIN) 50 MG | mouth 3 times daily | capsule | | 0/20 | 6/20 | ntinu | | capsule | (with meals). | | | 19 | 19 | ed | + + + +---------+------+------+-------+ Active Problems + + + | Problem | Noted Date | + + + | Epiretinal membrane (ERM) of both eyes | 07/08/2018 | + + + + + | Overview: Last Assessment & Plan: | | Monitor | + + + + + | Posterior vitreous detachment, both eyes | 07/08/2018 | + + + + + | Overview: Last Assessment & Plan: | | Monitor | + + + + + | Pseudophakia, both eyes | 07/08/2018 | + + + + + | Overview: Last Assessment & Plan: | | Trace inferior PCO left eye, not bothering patient at this time | + + + + + | Retinal tears, multiple, without detachment, bilateral | 07/08/2018 | + + + + + | Overview: Last Assessment & Plan: SHAHRIAR #2 s/p laser | | retinopexy, both eyes for retinal tear, both eye- Retinal breaks | | well surrounded by retinopexy (laser) scars.- No evidence of new | | retinal breaks or detachments on 360 degree scleral depressed | | examination. - RD precautions discussed and patient instructed to | | RTC sooner/seek urgent care if patient experiences discussed | | signs/symptoms. | + + + + + | Chronic pain | 06/04/2018 | + + + | Elevated PSA | 06/04/2018 | + + + | Obstructive lung disease | 04/01/2018 | + + + | Essential hypertension | 03/13/2018 | + + + | COPD (chronic obstructive pulmonary disease) | 03/13/2018 | + + + | Insomnia | 03/13/2018 | + + + | GERD (gastroesophageal reflux disease) | 03/13/2018 | + + + | Coronary artery disease | 02/27/2018 | + + + | Bilateral carotid artery stenosis | 09/18/2017 | + + + | CKD (chronic kidney disease), stage III | 09/18/2017 | + + + | Hyperlipidemia | 09/18/2017 | + + + | Hypothyroidism | 09/18/2017 | + + + | Impaired fasting glucose | 09/18/2017 | + + + Encounters +--------+ + + + + | Date | Type | Specialty | Care Team | Description | +--------+ + + + + | 12/15/ | Refill | Primary Care | Azar See | Medication Refill | | 2019 | | | E, DO | | +--------+ + + + + | 12/06/ | Refill | Primary Care | Azar See | Medication Refill | | 2018 | | | E, DO | | +--------+ + + + + | 12/03/ | Refill | Primary Care | Karla Louie CC | Medication Refill | | 2018 | | | APPLICATION PACKAGING SPECIALIST | | +--------+ + + + + | 12/02/ | Refill | Primary Care | Azar See | Medication Refill | | 2018 | | | E, DO | | +--------+ + + + + | 11/06/ | Refill | Primary Care | Azar See | Medication Refill | | 2018 | | | E, DO | | +--------+ + + + + | 11/04/ | Telephone | Primary Care | Azar See | Back Injury | | 2018 | | | E, DO | | +--------+ + + + + | 11/01/ | Telephone | Primary Care | Azar See | Appointment (for fup | | 2018 | | | E, DO | back pain) | +--------+ + + + + | 10/09/ | Orders Only | | Provider, | | | 2018 | | | MD Veronica | | +--------+ + + + + from Last 3 Months Immunizations + + + + | Name | Dates Previously Given | Next Due | + + + + | INFLUENZA PF | 01/16/2017 | | | QUAD(PED/ADOL/ADULT) | | | | ,PSKT or VIAL | | | + + + + | PNEUMOCOCCAL | 04/23/2014 | | | CONJUGATE 13-VALENT | | | | (PCV13) | | | + + + + | PNEUMOCOCCAL | 04/08/2009 | | | POLYSACCHARIDE | | | | 23-VALENT (PPSV23) | | | + + + + | TDAP, (ADOL/ADULT) | 03/07/2006, 01/05/2006 | | + + + + | ZOSTER, 1 DOSE | 08/08/2007 | | | (ZOSTAVAX) | | | + + + + Family History + + +------+ + | Medical History | Relation | Name | Comments | + + +------+ + | Prostate cancer | Father | | | + + +------+ + | Heart attack | Maternal | | | | | Grandfath | | | | | er | | | + + +------+ + | Heart attack | Maternal | | | | | Grandmoth | | | | | er | | | + + +------+ + | Cancer | Mother | | Leukemia | + + +------+ + | Stroke | Paternal | | | | | Grandmoth | | | | | er | | | + + +------+ + + +------+ + + | Relation | Name | Status | Comments | + +------+ + + | Father | | | | | | | (Age | | | | | 73) | | + +------+ + + | Maternal Grandfather | | | | + +------+ + + | Maternal Grandmother | | | | + +------+ + + | Mother | | | | | | | (Age | | | | | 71) | | + +------+ + + | Paternal Grandmother | | | | + +------+ + + Social History + +-------+ +--------+------+ | Tobacco Use | Types | Packs/Day | Years | Date | | | | | Used | | + +-------+ +--------+------+ | Former Smoker | | | | | + +-------+ +--------+------+ + +---+---+---+ | Smokeless Tobacco: | | | | | Never Used | | | | + +---+---+---+ + + | Tobacco Cessation: Counseling Given: No | | Comments: Stopped 2001 | + + [...] | + + Last Filed Vital Signs + + + + | Vital Sign | Reading | Time Taken | + + + + | Blood Pressure | 158/72 | 06/04/20181350 PDT | + + + + | Pulse | 102 | 06/04/20181350 PDT | + + + + | Temperature | 36.8 C (98.2 F) | 09/19/20171333 PDT | + + + + | Respiratory Rate | 17 | 06/04/20181350 PDT | + + + + | Oxygen Saturation | 93% | 06/04/20181350 PDT | + + + + | Inhaled Oxygen | - | - | | Concentration | | | + + + + | Weight | 79.3 kg (174 lb 12.8 | 06/04/20181350 PDT | | | oz) | | + + + + | Height | 175.3 cm (5' 9") | 06/04/20181350 PDT | + + + + | Body Mass Index | 25.81 | 06/04/20181350 PDT | + + + + Plan of Treatment + + + + + | Health Maintenance | Due Date | Last Done | Comments | + + + + + | Vaccine: Zoster (2 | | 08/08/2007 | | | of 3) | 8 | | | + + + + + | AAA Screening | | | | | | 9 | | | + + + + + | Vaccine: | | 03/07/2006, 01/05/2006 | | | Dtap/Tdap/Td (3 - | 6 | | | | Td) | | | | + + + + + | Adult Annual | | | | | Wellness Visit | 8 | | | + + + + + | Colorectal Cancer | | 03/12/2008, 03/12/2008 | | | Screening | 9 | | | | (Colonoscopy) | | | | + + + + + | Vaccine: Influenza | | 01/16/2017 | | | (#1) | 9 | | | + + + + + | Primary Care | | 06/04/2018, 03/13/2018, | | | Outreach (Low Risk) | 1 | 09/19/2017 | | + + + + + | Vaccine: | Completed | 04/23/2014, 04/08/2009 | | | Pneumococcal 65+ | | | | | Low/Medium Risk | | | | + + + + + Results Not on filefrom Last 3 Months Insurance + +--------+ +--------+ +---------+--------+ | Payer | Benefi | Subscriber | Effect | Phone | Address | Type | | | t Plan | ID | julita | | | | | | / | | Dates | | | | | | Group | | | | | | + +--------+ +--------+ +---------+--------+ | MEDICARE | MEDICA | [id number] | | [phone] | | Medica | | | RE | | 009-Pr | 5 | | re | | | PART A | | esent | | | | | | AND B | | | | | | + +--------+ +--------+ +---------+--------+ | AARP | AARP | [id number] | 03/12/19 | [phone] | | Indemn | | | MDCR | | 18-Pre | 0 | | ity | | | SUPPL | | sent | | | | + +--------+ +--------+ +---------+--------+ + +--------+ +--------+ + + | Guarantor Name | Accoun | Relation to | Date | Phone | Billing Address | | | t Type | Patient | of | | | | | | | | | | + +--------+ +--------+ + + | Lenin Box | Person | Self [birth year] | [address] | | | al/Marek | | 1944 | [phone] | [place] | | | [place] | | | [address] (Home) | [address] | + +--------+ +--------+ + + Advance Directives Patient has advance care planning documents on file. For more information, please contact:[facility] [place] [address]
--- OUTSIDE RECORDS SUMMARY | ~2018-12-20 | XMS | Clinical Summary ---
Demographics + + + | Address | [address] | | | [place] [address] | + + + | Home Phone | | + + + | Preferred Language | Unknown | + + + | Marital Status | | + + + | Temple Affiliation | Unknown | + + + | Race | Unknown | + + + | Ethnic Group | Unknown | + + + Author + + + | Author | [facility] | | | and [place] | + + + | Organization | [facility] | | | [...] [place] | | | | | [address] | | + + + + + Care Team Providers + +------+ + | Care Hospice/Home Health Aide Name | Role | Phone | + [...] Refill | | 2018 | | | ASSOCIATE PROFESSOR OF GEOLOGY | | +--------+ + + + + [...] +--------+ +---------+--------+ | MEDICARE | MEDICA | [id number] | | [phone] | | Medica | | | RE | | 009-Pr | 5 | | re | | | PART A | | esent | | | | | | AND B | | | | | | + +--------+ +--------+ +---------+--------+ | AARP | AARP | [id number] | 03/12/19 | [phone] | | Indemn [...] | | al/Marek | | 1944 | [phone] | [place] | | | melly | | | 5 (Home) | [address] | + +--------+ +--------+ + + Advance Directives Patient has advance care planning documents on file. For more information, please contact:[facility] [place] [address]
--- OUTSIDE RECORDS SUMMARY | ~2018-12-20 | XMS | Encounter Summary ---
Demographics + + + | Address | [address] | | | [place] [address] | + + + | Home Phone | | + + + | Preferred Language | Unknown | + + + | Marital Status | | + + + | Confucianism Affiliation | PRO | + + + [...] Team Providers + +------+ + | Care Scalper Operator Name | Role | Phone | [...] | | 2019 | Visit | | [address] | | | | | | [address] | | | | | | [place] | | | | | | [address] | | | | | | [phone] | | | | | | | | +--------+---------+ + + + documented as of this encounter Visit Diagnoses Not on filedocumented in this encounter"
--- OUTSIDE RECORDS SUMMARY | ~2018-12-20 | XMS | Encounter Summary ---
Demographics + + + | Address | [address] | | | [place] [address] | + + + | Home Phone | | + + + | Preferred Language | Unknown | + + + | Marital Status | | + + + | Latter Day Affiliation | Unknown | + + + | Race | Unknown | + + + | Ethnic Group | Unknown | + + + Author + + + | Author | [facility] | | | and [place] | + + + | Organization | [facility] | | | and [...] [place] | | | | | [address] | | + + + + + Care Team Providers + +------+ + | Care Broiler Supervisor Name | Role | Phone | [...] Medication Refill | | 2019 | | [facility] | IT CONSULTING DIRECTOR | | | | | [facility] [address] | | | | | | [address] [facility], | | | | | | [place] [address] | | | | | | [phone] | | | +--------+--------+ + + + [...]
--- OUTSIDE RECORDS SUMMARY | ~2018-12-20 | XMS | Encounter Summary ---
Demographics + + + | Address | [address] | | | [place] [address] | + + + | Home Phone | | + + + | Preferred Language | Unknown | + + + | Marital Status | | + + + | Evangelical Affiliation | Unknown | + + + | Race | Unknown | + + + | Ethnic Group | Unknown | + + + Author + + + | Author | [facility] | | | and [place] | + + + | Organization | [facility] | | | [...] [place] | | | | | [address] | | + + + + + Care Team Providers + +------+ + | Care Sueding And Buffing Machine Operator Name | Role | Phone [...] Medication Refill | | 2019 | | [facility] | E, DO [address] | | | | | [facility] [address] | [place], [place] | | | | | [address] [place], | [address] | | | | | [place] [address] | [phone] | | | | | [phone] | | | +--------+--------+ + + + [...]
--- OUTSIDE RECORDS SUMMARY | ~2018-12-20 | XMS | Clinical Summary ---
Demographics + + + | Address | [address] | | | [place] [address] | + + + | Home Phone [...] Team Providers + +------+ + | Care Network Engineer Administrator Name | Role | Phone | + +------+ + | Azar See DO | PCP | | + +------+ + Source Comments [facility]ELI is fully live on both [facility] Allergies No Known Allergies Medications + + [...] | + + + +---------+------+------+-------+ | Fish Oil-[place]-3 | Take 2,000 mg by | | [...] | | 2019 | Visit | | [address] | | | | [address] | | | | | | [place], [place] | | | | | | [address] | | | | | | [phone] | | | | | | | [...] | | | | | | | [address] | | + +--------+ +--------+ + +--------+ | [employer] | AARP | xxxxxxxxxxx | 03/12/19 | [phone] | [address] | Indemn | | RETIRED PEOPLE | | | 18-Pre | 9 | [id number] | ity | | | | | sent | | [place] | | | | | | | | [address] | | + +--------+ +--------+ + +--------+ [...] | | al/Fam | | 1945 | [phone] | [place] [address] | | | melly | | | 5 (Home) | | + +--------+ +--------+ + +"
--- OUTSIDE RECORDS SUMMARY | ~2018-12-20 | XMS | Encounter Summary ---
Demographics + + + | Address | [address] | | | [place] [address] | + + + | Home Phone | | + + + | Preferred Language | Unknown | + + + | Marital Status | | + + + | Faith Affiliation | PRO | + + + | Race | White | + + + | Ethnic Group | Not or | + + + Author + + + | Author | [facility] | + + + | Organization | [facility] | + + + | Address | Unknown | + + + | Phone | Unavailable | + + + Support + + +---------+ + | Name | Relationship | Address | Phone | + + +---------+ + | Sury Box | ECON | Unknown | | + + +---------+ + Care Team Providers + +------+ + | Care Recording Studio Setup Worker Name | Role | Phone | + [...] [address] | | | | | | [address] | [facility] [place] | | | | | | Phone: | [address] | | | | | | [phone] | Phone: | | | | | | Fax: | [phone] | | | | | | [phone] | Fax: | | | | | | | [phone] | + +--------+ + + + + Encounter Details +--------+---------+ + + + | Date | Type | Department | Care Team | Description | +--------+---------+ + + + | 08/30/ | Office | [facility] | Chris [place] MD | Retinal tears, | | 2019 | Visit | [facility] at | [address] | multiple, without | | | | [place] [address] | detachment, | | | | [address] | [place], [place] | bilateral; | | | | Mailcode: CEI | [id number] | Pseudophakia, both | | | | [place], [place] | [phone] | eyes; Epiretinal | | | | [address] | | membrane (ERM) of | | | | [phone] | | both eyes | +--------+---------+ + [...] PM PDT [facility] Progress Note 08/30/2018 Assessment & Plan: 73 [...] 200 mg by mouth once daily. Fish Oil-[place]-3 Fatty Acids Take 2,000 mg by mouth [...] | Examination: See Ophthalmology Module Attestations: The costume technician, under the supervision of the physician, [...] | | 2018 | Visit | | [address] | | | | | [address] | | | | | | [place], [place] | | | | | | [address] | | | | | | [phone] | | | | | | | [...]
--- OUTSIDE RECORDS SUMMARY | ~2018-12-20 | XMS | Encounter Summary ---
Demographics + + + | Address | [address] | | | [place] [address] | + + + | Home Phone | | + + + | Preferred Language | Unknown | + + + | Marital Status | | + + + | Gnosticism Affiliation | PRO | + + + | Race | White | + + + | Ethnic Group | Not or | + + + Author + + + | Author | [facility] | + + + | Organization | [facility] | + + + | Address | Unknown | + + + | Phone | Unavailable | + + + Support + + +---------+ + | Name | Relationship | Address | Phone | + + +---------+ + | Sury Box | ECON | Unknown | | + + +---------+ + Care Team Providers + +------+ + | Care Communications Field Technician Name | Role | Phone | + +------+ + | Azar See DO | PCP | | + +------+ + Reason for Visit +--------+ + | Reason | Comments | +--------+ + | Other | improvement in Cholesterol and LDL | +--------+ + Encounter Details +--------+ + + + + | Date | Type | Department | Care Team | Description | +--------+ + + + + | 12/13/ | Telephone | Cardiology | Roni Delaney MD | Other (improvement | | 2018 | | Preventive at [facility] | [address] | in Cholesterol and | | | | [address] | [place], [place] | LDL) | | | | Mailcode: CH9A | [id number] | | | | | [facility] | [phone] | | | | | and Healing, | | | | | | [address] | | | | | | [place], [place] | | | | | | [address] | | | | | | [phone] | | | +--------+ + + + [...] | 2019 | Visit | | [address] | | | | | [address] | | | | | | [place] | | | | | | [address] | | | | | | [phone] | | | | | | | | +--------+---------+ + + + documented as of this encounter Visit Diagnoses Not on filedocumented in this encounter"
--- OUTSIDE RECORDS SUMMARY | ~2018-12-20 | XMS | Encounter Summary ---
Demographics + + + | Address | [address] | | | [place] [address] | + + + | Home Phone | | + + + | Preferred Language | Unknown | + + + | Marital Status | | + + + | Judaism Affiliation | Unknown | + + + | Race | Unknown | + + + | Ethnic Group | Unknown | + + + Author + + + | Author | [facility] | | | and [place] | + + + | Organization | [facility] | | | and [...] [place] | | | | | [address] | | + + + + + Care Team Providers + +------+ + | Care Distributor Sales Manager Name | Role | Phone | [...] Description | +--------+--------+ + + + | 12/02/ | Refill | DORITA CAIN | Azar See | Medication Refill | | 2019 | | [facility] | E, DO [address] | | | | | [facility] | [place], [place] | | | | | [address] [place], | [address] | | | | | [place] [address] | [phone] | | | | | [phone] | | | +--------+--------+ + + + [...]
--- OUTSIDE RECORDS SUMMARY | ~2018-12-20 | XMS | Encounter Summary ---
Demographics + + + | Address | [address] | | | [place] [address] | + + + | Home Phone | | + + + | Preferred Language | Unknown | + + + | Marital Status | | + + + | Bahai Affiliation | Unknown | + + + [...] [place] | | | | | [address] | | + + + + + Care Team Providers + +------+ + | Care Plaster Molder Name | Role | Phone | + [...] Medication Refill | | 2019 | | [facility] | E, DO [address] | | | | | MED[address] | [place], [place] | | | | | [address] [place], | [address] | | | | | [place] [address] | [phone] | | | | | [phone] | | | +--------+--------+ + + + [...]
--- OUTSIDE RECORDS SUMMARY | ~2018-12-20 | XMS | Encounter Summary ---
Demographics + + + | Address | [address] | | | [place] [address] | + + + | Home Phone | | + + + | Preferred Language | Unknown | + + + | Marital Status | | + + + | Adventist Affiliation | Unknown | + + + [...] [place] | | | | | [address] | | + + + + + Care Team Providers + +------+ + | Care Radiator Mechanic Name | Role | Phone | + [...] Medication Refill | | 2019 | | [facility] | E, DO [address] | | | | | MEDICAL [address] | [place], [place] | | | | | [address] [place], | [address] | | | | | [place] [address] | [phone] | | | | | [phone] | | | +--------+--------+ + + + [...]
--- OUTSIDE RECORDS SUMMARY | ~2018-12-20 | XMS | Encounter Summary ---
Demographics + + + | Address | [address] | | | [place] [address] | + + + | Home Phone | | + + + | Preferred Language | Unknown | + + + | Marital Status | | + + + | Anglican Affiliation | PRO | + + + | Race | White | + + + | Ethnic Group | Not or | + + + Author + + + | Author | [facility] | + + + | Organization | [facility] | + + + | Address | Unknown | + + + | Phone | Unavailable | + + + Support + + +---------+ + | Name | Relationship | Address | Phone | + + +---------+ + | Sury Box | ECON | Unknown | | + + +---------+ + Care Team Providers + +------+ + | Care C Web Developer Name | Role | Phone | + [address] | | | | | | [address] | [place], [place] | | | | | | Phone: | [address] | | | | | | [phone] | Phone: | | | | | | Fax: | [phone] | | | | | | [phone] | Fax: | | | | | | | [phone] | + +--------+ + + + + Encounter Details +--------+---------+ + + + | Date | Type | Department | Care Team | Description | +--------+---------+ + + + | 07/08/ | Office | [facility] | Chris Mattson MD | Retinal detachment | | 2019 | Visit | [facility] at | [address] | of both eyes with | | | | [place] [address] | [address] | multiple retinal | | | | [address] | [place], [place] | tears; Retinal | | | | Mailcode: [facility]I | [address] | tears, multiple, | | | | [place], [place] | [phone] | without detachment, | | | | [address] | | bilateral; Posterior | | | | [phone] | | vitreous | | | | [...] Mattson MD - 07/08/2018 11:00 AM PDT [facility] Progress Note 07/08/2018 Assessment & Plan: [...] x 6 months. Right eye is stable. Gxd-cxujalx-ezdcfmxol diabetes mellitus controlled with diet and exercise. [...] 200 mg by mouth once daily. Fish Oil-[place]-3 Fatty Acids Take 2,000 mg by mouth [...] | Examination: See Ophthalmology Module Attestations: The vehicle operator technician, under the supervision of the physician, [...] | | 2018 | Visit | | [address] | | | | | [address] | | | | | | [place], [place] | | | | | | [address] | | | | | | [phone] | | | | | | | [...]
--- OUTSIDE RECORDS SUMMARY | ~2018-12-20 | XMS | Encounter Summary ---
Demographics + + + | Address | [address] | | | [place] [address] | + + + | Home Phone | | + + + | Preferred Language | Unknown | + + + | Marital Status | | + + + | Christianity Affiliation | PRO | + + + | Race | White | + + + | Ethnic Group | Not or | + + + Author + + + | Author | [facility] | + + + | Organization | [facility] | + + + | Address | Unknown | + + + | Phone | Unavailable | + + + Support + + +---------+ + | Name | Relationship | Address | Phone | + + +---------+ + | Sury Box | ECON | Unknown | | + + +---------+ + Care Team Providers + +------+ + | Care Detailer Furniture Name | Role | Phone | + [address] | | | | | | [address] | [place], [place] | | | | | | Phone: | [phone] | | | | | | [phone] | Phone: | | | | | | Fax: | [phone] | | | | | | [phone] | Fax: | | | | | | | [phone] | + +--------+ + + + + Encounter Details +--------+---------+ + + + | Date | Type | Department | Care Team | Description | +--------+---------+ + + + | 07/19/ | Office | [facility] | Chris Mattson MD | Epiretinal membrane | | 2019 | Visit | [facility] at | [address] | (ERM) of both eyes | | | | [facility] [address] | (Primary Dx); | | | | [address] | [place], [place] | Retinal tears, | | | | Mailcode: [facility]I | [id number] | multiple, without | | | | [place], [place] | [phone] | detachment, | | | | [address] | | bilateral | | | | [phone] | | | +--------+---------+ + + + [...] garner original. [facility] Progress Note 07/19/2018 Assessment & Plan: [...] 200 mg by mouth once daily. Fish Oil-[place]-3 Fatty Acids Take 2,000 mg by mouth [...] | Examination: See Ophthalmology Module Attestations: The lidar technician, under the supervision of the physician, [...] [address] | | | | | | [place], [place] | | | | | | [address] | | | | | | [phone] | | | | | | | [...] Performed At | + + + | Marketing And Outreach Coordinator | [facility] | | [facility]: [...] + + | [facility] | [address] | [place] [address] | | | INSTITUTE | [place]. | | | + + + + + documented in this encounter Visit Diagnoses + + | Diagnosis | + + | Epiretinal membrane (ERM) of both eyes - Primary | + + | Retinal tears, multiple, without detachment, bilateral | + + documented in this encounter"
--- OUTSIDE RECORDS SUMMARY | ~2018-12-20 | XMS | Encounter Summary ---
Demographics + + + | Address | [address] | | | [place] [address] | + + + | Home Phone | | + + + | Preferred Language | Unknown | + + + | Marital Status | | + + + | Taoism Affiliation | PRO | + + + | Race | White | + + + | Ethnic Group | Not or | + + + Author + + + | Author | [facility] | + + + | Organization | [facility] | + + + | Address | Unknown | + + + | Phone | Unavailable | + + + Support + + +---------+ + | Name | Relationship | Address | Phone | + + +---------+ + | Sury Box | ECON | Unknown | | + + +---------+ + Care Team Providers + +------+ + | Care Motion Picture Narrator Name | Role | Phone | + [...] | | 2018 | | Preventive at [facility] | [address] | in Cholesterol and | | | | [address] | [place], [place] | LDL) | | | | Mailcode: CH9A | [address] | | | | | [facility] | [phone] | | | | | and Healing, | | | | | | [address] | | | | | | [place], [place] | | | | | | [address] | | | | | | [phone] | | | +--------+ + + + [...] [address] | | | | | | [place] | | | | | | [address] | | | | | | [phone] | | | | | | | | +--------+---------+ + + + documented as of this encounter Visit Diagnoses Not on filedocumented in this encounter"
--- NOTE | 2018-12-20 16:52 | EKG ---
[facility] [address] [place] [address] Signed Sinus rhythm with marked sinus arrhythmia Right bundle branch block Left anterior fascicular block Bifascicular block Abnormal ECG No previous ECGs available Confirmed by AHMET CLADERON MD ([id number]) on 12/20/2018 4:52:37 PM Electronically Signed By: AHMET CALDERON MD 12/20/18 1652 PATIENT NAME: ROBIN OH Electrocardiogram DATE OF : 43 PHYSICIAN: AHMET CALDERON MD REPORT #: [id number] REPORT IS CONFIDENTIAL AND NOT TO BE RELEASED WITHOUT AUTHORIZATION
== END 2018-12-20 12:05 | disposition home or self-care (01) ==
LOC: ED 09:03
DX: R00.2 Palpitations (principal); E03.9 Hypothyroidism, unspecified; I12.9 Hypertensive chronic kidney disease with stage 1 through stage 4 chronic kidney disease, or unspecified chronic kidney disease; N18.9 Chronic kidney disease, unspecified
CPT/HCPCS: 0297T; 0298T; 80053; 83735; 84439; 84443; 84484; 85025; 93005; 93010; 99285-25

== ENCOUNTER 2023-09-05 14:27 | Emergency (ER) | payer MEDICARE ==
[~2023-09-05] VITALS: Ht 175.3 cm; Wt 75.2 kg
[2023-09-05] MEDS ORDERED: OMEPRAZOLE20 MG PO (16:17)
[2023-09-05] MEDS ORDERED: LIPITOR20 MG (16:17)
[2023-09-05] MEDS ORDERED: VENTOLIN HFA18 GM (16:17)
[2023-09-05] MEDS ORDERED: DILT-XR120 MG PO (16:17)
[2023-09-05] MEDS ORDERED: HYDROCODONE/ACETA 5/325 TAB PO ONE (18:30)
[2023-09-05] MEDS ORDERED: dexAMETHasone 4 MG TAB PO ONE (18:30)
[2023-09-05] MEDS ORDERED: METHYLPREDNISOLO4 M1 PO (18:34)
[2023-09-05] MEDS ORDERED: HYDROCODON-ACE1 EA10 PO (18:34)
[2023-09-05 18:50] VITALS: BP 164/65
== END 2023-09-05 18:50 | disposition home or self-care (01) ==
LOC: ED 14:27
DX: M54.32 Sciatica, left side (principal); I12.9 Hypertensive chronic kidney disease with stage 1 through stage 4 chronic kidney disease, or unspecified chronic kidney disease; N18.9 Chronic kidney disease, unspecified; Z79.899 Other long term (current) drug therapy
CPT/HCPCS: 93926; J8540

== ENCOUNTER 2024-10-24 09:46 | Emergency (ER) | payer MEDICARE ==
[~2024-10-24] VITALS: Ht 175.3 cm; Wt 79.6 kg
[~2024-10-24 09:46] MED LIST: DILT-XR120 MG PO; HYDROCODON-ACE1 EA10 PO; LIPITOR20 MG; METHYLPREDNISOLO4 M1 PO; OMEPRAZOLE20 MG PO; VENTOLIN HFA18 GM
[2024-10-24 10:11] LABS: BASOPHILS 0.5 % (0.2-1.2); EOSINOPHILS 2.8 % (0.8-7.0); LYMPHOCYTES 19.2 % (21.8-53.1); MCH 30.9 PG (25.7-32.2); MCHC 33.4 g/dL (32.3-36.5); MCV 92.4 fL (79.0-92.2); MONOCYTES 6.6 % (5.3-12.2); NEUTROPHILS 70.7 % (34.0-67.9); RBC 4.34 M/uL (4.63-6.08)
[2024-10-24 10:21] LABS: INR 0.98 (0.80-1.30); PROTIME 12.3 Sec (11.2-14.2)
[2024-10-24 10:26] LABS: ALT (SGPT) 27.0 U/L (14-59); AST (SGOT) 18.0 U/L (15-37); GLOMERULAR FILTRATION RATE,EST 55.0 mL/min (>60); PROTEIN, TOTAL 7.7 g/dL (6.4-8.2); UREA NITROGEN 17.0 mg/dL (7-18)
[2024-10-24] MEDS ORDERED: VAZALORE81 MG PO (10:53)
[2024-10-24 12:25] VITALS: BP 178/74
--- NOTE | 2024-10-27 14:46 | EKG ---
[facility] [address] [place] [address] Signed Normal sinus rhythm Right bundle branch block Left anterior fascicular block Bifascicular block Abnormal ECG When compared with ECG of 20-DEC-2018 09:16, T wave inversion no longer evident in Anterior leads Confirmed by Rashmi Granado MD ([id number]) on 10/27/2024 2:45:53 PM Electronically Signed By: RASHMI GRANADO MD 10/27/24 1446 PATIENT NAME: ROBIN OH JR Electrocardiogram DATE OF : 43 PHYSICIAN: RASHMI GRANADO MD REPORT #: [id number] REPORT IS CONFIDENTIAL AND NOT TO BE RELEASED WITHOUT AUTHORIZATION
== END 2024-10-24 12:25 | disposition home or self-care (01) ==
LOC: ED 09:46
PROVIDERS: Emergency Medicine
DX: H54.61 Unqualified visual loss, right eye, normal vision left eye (principal); I12.9 Hypertensive chronic kidney disease with stage 1 through stage 4 chronic kidney disease, or unspecified chronic kidney disease; N18.9 Chronic kidney disease, unspecified; I70.0 Atherosclerosis of aorta; Z79.82 Long term (current) use of aspirin; Z79.899 Other long term (current) drug therapy
CPT/HCPCS: 36415; 70450; 70496; 70498; 80053; 85025; 85610; 93005; 93010; 99284-25; Q9967